=== PATIENT | male | born 1940 | race Caucasian/White ===

== ENCOUNTER 2021-03-11 16:09 | Inpatient (IN) | payer BC, MEDICARE ==
[~2021-03-11] VITALS: Ht 177.8 cm; Wt 111.1 kg
[~2021-03-11 16:09] MED LIST: ASPIRIN CHEWABL81 MG PO; BREO ELLIPTA 21 EACH INH; COZAAR50 MG PO; LEVAQUIN500 MG PO; PROSCAR5 MG PO; SINGULAIR10 MG PO; TYLENOL 500 MG500 MG PO; TYLENOL W/CODEIN1 E1 PO; ULTRAM50 MG PO
[2021-03-11 17:17] LABS: HEMOGLOBIN 14.9 gm/dl (14.0-17.5); RED BLOOD COUNT 5.07 M/UL (4.20-5.50); WHITE BLOOD COUNT 7.9 K/UL (4.5-11.0)
[2021-03-11 17:46] LABS: BUN/CREATININE RATIO 20 (0-10)
[2021-03-12] MEDS ORDERED: TERAZOSIN HCL10 MG PO (07:57)
[2021-03-12] MEDS ORDERED: ZITHROMAX250 MG PO (11:59)
[2021-03-12] MEDS ORDERED: MEDROL4 MG PO (12:00)
[2021-03-12] MEDS ORDERED: ZYRTEC10 MG PO (12:00)
[2021-03-12] MEDS ORDERED: TAMSULOSIN HCL0.4 MG PO (12:00)
[2021-03-12] MEDS ORDERED: TRAMADOL HCL50 MG PO (12:00)
[2021-03-12] MEDS ORDERED: OMEPRAZOLE20 M1 PO (12:01)
[2021-03-12] MEDS ORDERED: DICLOFENAC SOD100 MG PO (12:01)
[2021-03-12] MEDS ORDERED: VITAMIN C500 M4 PO (12:01)
[2021-03-12] MEDS ORDERED: VITAMIN D325 MCG PO (12:02)
[2021-03-12] MEDS ORDERED: ZINC50 M1 PO (12:02)
[2021-03-12] MEDS ORDERED: VITAMIN B-121000 MCG PO (12:02)
--- NOTE | 2021-03-12 23:38 | NUR ---
CALLED REPORT TO CONNIE. PT BEING TRANSFERRED TO ROOM 5121.
--- NOTE | 2021-03-13 00:24 | NUR ---
PT TRANSFERRED TO ROOM 5121 VIA RESOURCE NURSE. PT STABLE AT THE TIME OF TRANSFER.
[2021-03-13 04:48] LABS: HEMOGLOBIN 14.2 gm/dl (14.0-17.5); RED BLOOD COUNT 4.99 M/UL (4.20-5.50)
[2021-03-13] MEDS ORDERED: COMBIVENT RESPIM4 GM INH (10:39)
== END 2021-03-13 12:30 | disposition home or self-care (01) | DRG 177 ==
LOC: ER1 16:09 → CDU 03-12 01:20 → 3 EAST 03-12 17:56 → M/S 03-13 00:32
PROVIDERS: Emergency Medicine; ADMIT Internal Medicine
PROC: 8E0ZXY6 Isolation (ICD-10-PCS; principal; 2021-03-12)
PROC: XW033E5 Introduction of Remdesivir Anti-infective into Peripheral Vein, Percutaneous Approach, New Technology Group 5 (ICD-10-PCS; 2021-03-12)
PROC: 3E0333Z Introduction of Anti-inflammatory into Peripheral Vein, Percutaneous Approach (ICD-10-PCS; 2021-03-12)
DX: U07.1 COVID-19 (principal); J96.01 Acute respiratory failure with hypoxia; J12.82 Pneumonia due to coronavirus disease 2019; J44.0 Chronic obstructive pulmonary disease with (acute) lower respiratory infection; I49.5 Sick sinus syndrome; M19.91 Primary osteoarthritis, unspecified site; I10 Essential (primary) hypertension; E86.0 Dehydration; Z96.652 Presence of left artificial knee joint; Z95.0 Presence of cardiac pacemaker; Z79.899 Other long term (current) drug therapy
CPT/HCPCS: 0240U; 36415; 36600; 71045; 80048; 81001; 82550; 82553; 82803; 83605; 83735; 83874; 84484; 85025; 86140; 87040; 93005; 94640; 94664; 94760; 96372; 96374; 96376; 99285; J0248; J1100; J1650; J7030